=== PATIENT | male | born 1955 | race African-American/Black ===

== ENCOUNTER 2022-05-18 00:45 | Inpatient (IN) | payer MEDICAID ==
[~2022-05-18] VITALS: Ht 180.3 cm; Wt 60.6 kg
[2022-05-18 02:29] LABS: CHLORIDE 108 mEq/L (98-107)
[2022-05-18] MEDS ORDERED: NITROGLYCERIN 0.4MG TABLET SL SL PRN (02:45)
[2022-05-18] MEDS ORDERED: ASPIRIN 81MG TABLET PO NR (02:45)
[2022-05-18] MEDS ORDERED: KETOROLAC 30MG/ML VIAL IM ONE (02:45)
[2022-05-18] MEDS ORDERED: ACETAMINOPHEN 325MG TABLET PO NR (02:45)
[2022-05-18 03:09] LABS: BASOPHILS % 0.5 % (0.0-2.0); HEMATOCRIT. 32.8 % (42.0-52.0); HEMOGLOBIN. 11.2 g/dL (14.0-18.0); LYMPHOCYTES % 13.1 % (20.0-50.0); MEAN CORPUSCULAR HEMOGLOBIN 29.6 pg (28.0-32.0); MEAN PLATELET VOLUME 6.5 fl (7.4-10.4); MONOCYTES % 7.3 % (2.0-8.0); NEUTROPHILS % 78.1 % (40.0-76.0); PLATELET 919 x1000/uL (130-400); RED BLOOD CELL COUNT 3.77 mill/uL (4.7-6.1); RED CELL DISTRIBUTION WIDTH 14.7 % (11.6-14.6)
[2022-05-18] MEDS ORDERED: VANCOMYCIN 1G PREMIX 200 ML IV NR (04:00)
[2022-05-18] MEDS ORDERED: PIPERACILLIN/TAZ 3.375G PREMIX 50 ML IV NR (04:00)
[2022-05-18] MEDS ORDERED: HYDROCODONE/ACETAMINOPHEN 5/325MG TABLET PO PRN (07:15)
[2022-05-18] MEDS ORDERED: TRAMADOL 50MG TABLET PO PRN (07:15)
[2022-05-18] MEDS ORDERED: ONDANSETRON HCL 4MG/2ML INJ IV PRN (07:15)
[2022-05-18] MEDS ORDERED: MAGNESIUM/ALUMINUM HYDROXIDE/SIMETHICONE 30ML UDC PO PRN (07:15)
[2022-05-18] MEDS ORDERED: GUAIFENESIN 200MG/10ML SUGAR FREE UDC PO PRN (07:15)
[2022-05-18] MEDS ORDERED: ACETAMINOPHEN 325MG TABLET PO PRN (07:15)
[2022-05-18] MEDS ORDERED: DOCUSATE SODIUM 100MG CAPSULE PO PRN (07:15)
[2022-05-18] MEDS ORDERED: ASPIRIN 81MG EC TABLET PO SCH (09:00)
[2022-05-18] MEDS ORDERED: ENOXAPARIN 40MG/0.4ML SYR SUBCUT SCH (09:00)
[2022-05-18] MEDS: AMLODIPINE 10MG TABLET PO SCH ×2 (09:05→10:00)
[2022-05-18 09:45] VITALS: BP 113/58
[2022-05-18 10:16] VITALS: BP 113/58
[2022-05-18] MEDS ORDERED: AMLO2.5T45 MT (11:41)
[2022-05-18 11:47] VITALS: BP 142/88
[2022-05-18 13:07] VITALS: BP 142/88
[2022-05-18] MEDS ORDERED: NALOXONE HCL 0.4MG/ML VIAL IV PRN (15:15)
== END 2022-05-18 16:47 | disposition home or self-care (01) | DRG 139 ==
LOC: ER 00:45 → 6WST 03:45
PROVIDERS: ADMIT Hospitalist; ATTEND Hospitalist
DX: J18.9 Pneumonia, unspecified organism (principal); I10 Essential (primary) hypertension; R07.89 Other chest pain
CPT/HCPCS: 36415; 71045; 80053; 83880; 84484; 85025; 93005; 93306; 93970; 99285; J1650; J1885; J2543; J3370